=== PATIENT | female | born 2000 | race Caucasian/White ===

== ENCOUNTER 2023-09-27 21:53 | Emergency (ER) | payer OTHER, SELFPAY ==
[2023-09-27 21:57] VITALS: BP 150/90; PULSE 99; RESP 20; TEMP 36.6; O2SAT 100; BMI 21.0
--- NOTE | 2023-09-27 22:08 | ED_ITS ---
HPI - Wound/Laceration General Chief Complaint: Wound/Laceration Stated Complaint: laceration Time Seen by Provider: 09/27/23 22:02 Source: patient Mode of arrival: walk-in History of Present Illness HPI narrative: patient presents with a lac to her left wrist. States she was rough housing and somehow cut her wrist. Denies numbness or weakness of her left upper extremity Onset (ago): hour(s) Related Data Allergies Allergy/AdvReac Type Severity Reaction Status Date / Time No Known Drug Allergies Allergy Verified 09/27/23 22:00 Review of Systems ROS Status of ROS 10 or more systems reviewed and unremark able except as noted in history and below Exam Constitutional Vital Signs, click to edit/add: Last Vital Signs Temp 97.9 F 09/27/23 21:57 Pulse 99 H 09/27/23 21:57 Resp 20 09/27/23 21:57 BP 150/90 H 09/27/23 21:57 Pulse Ox 100 09/27/23 21:57 O2 Del Method Room Air 09/27/23 21:57 Common normals: no apparent distress, average body habitus, oriented x3, no limitations, healthy appearing, alert and well nourished Eye Common normals: EOMs intact bilaterally and conjunctivae normal Respiratory Common normals: normal respiratory effort, no retractions and no use of accessory muscles Cardio Common normals: regular rate, regular rhythm, S1 normal heart sound and S2 normal heart sound Extremity Other: superficial lac volar left wrist. 1.8cm Neuro Common normals: oriented x3, CN's II-XII intact bilaterally, moves all extremities, no focal motor deficits and no sensory deficits noted Sensorium/orientation: awake Psych Appearance: grossly normal Course Vital Signs Vital signs: Vital Signs Temperature 97.9 F 09/27/23 21:57 Pulse Rate 99 H 09/27/23 21:57 Respiratory Rate 20 09/27/23 21:57 Blood Pressure 150/90 H 09/27/23 21:57 Pulse Oximetry 100 09/27/23 21:57 Oxygen Delivery Method Room Air 09/27/23 21:57 Temperature 97.9 F 09/27/23 21:57 Pulse Rate 99 H 09/27/23 21:57 Respiratory Rate 20 09/27/23 21:57 Blood Pressure 150/90 H 09/27/23 21:57 Pulse Oximetry 100 09/27/23 21:57 Oxygen Delivery Method Room Air 09/27/23 21:57 MDM - Wound/Laceration MDM Narrative Medical decision making narrative: presents with minor lac left volar lac that was repaired without incident. History questionable. States she was rough housing with her infant son and some how cut her self . Discharge Plan Discharge Chief Complaint: Wound/Laceration Clinical Impression: Laceration Patient Disposition: Home, Self-Care Instructions: Laceration (ED) Additional Instructions: have wound rechecked in 2-3 days and stitches removed in 10 days Stand Alone Forms: Portal Instructions Referrals: Physician,Non-Staff, [Primary Care Provider] - 1 week Procedures ED Procedure Instructions Procedures Procedures: left wrist volar lac. superficial lac. No FB. No exposure of SQ tissue. 12mm lac. 1% lido as a local. Site cleaned with betadine, rinsed with saline and closed with # 2 4.0 nylon stitches
--- NOTE | 2023-09-27 22:08 | PC.NURSE ---
Pt states she was roughing housing with her son earlier this evening around 6pm, and cut her left wrist on something, but the pt is unsure what she cut her wrist on. States they went to [place] ED and sat in the waiting room for a long time so decided to come here. Bleeding is controlled. Hibiclens applied to gauze and placed on pts wrist. Pt light headed and dizzy, which is normal for her when she is injured.
--- NOTE | 2023-09-27 22:40 | PC.NURSE ---
Discussed discharge paperwork with pt. all questions answered. Pt verbalize understanding to have wound rechecked in 2-3 days and to have sutures removed in 10 days. Pt ambulated off unit in stable condition.
[2023-09-27] MEDS: BACITRACIN OINTMENT 28.4 GM TUBE 1 APPLIC TOPICAL (22:48)
[2023-09-27] MEDS: LIDOCAINE HCL 1% 100 MG/10 ML MDV INJ (22:48)
== END 2023-09-27 22:49 | disposition home or self-care (01) ==
PROVIDERS: Emergency Provider Internal Medicine
DX: S61.512A Laceration without foreign body of left wrist, initial encounter (principal); W45.8XXA Other foreign body or object entering through skin, initial encounter; Y93.83 Activity, rough housing and horseplay
CPT/HCPCS: 12001; 99282

== ENCOUNTER 2024-03-26 19:56 | Emergency (ER) | payer OTHER, SELFPAY ==
[2024-03-26 20:16] VITALS: BP 124/85; PULSE 69; TEMP 36.7; O2SAT 99; BMI 21.0
--- NOTE | 2024-03-26 20:24 | XR_ITS ---
The [address] [address] Patient Name: SHAE MARCUS MRN: [id number] date: 2000 Sex: F Assigned Patient Location: ER Current Patient Location: ED.MAIN Accession/Order Number: [id number] Exam Date: 03/26/2024 21:06 Report Date: 03/26/2024 23:07 At the request of: SANG FISCHER Procedure: XR ribs RT min 3V w CXR1V EXAM: XR ribs RT min 3V w CXR1V HISTORY: Atraumatic pain, right lower lateral ribs COMPARISON: None. TECHNIQUE: PA chest x-ray. AP oblique views right RIBS. FINDINGS: Chest x-ray demonstrates clear lungs, normal heart size and mediastinal contour. No pleural effusion or pneumothorax. No fracture. ] Films demonstrate smooth cortical margins normal mineralization without displaced fracture or focal bone lesion. XR/XR ribs RT min 3V w CXR1V IMPRESSION: Negative chest x-ray and right rib x-ray. No acute process in the chest, no rib fracture. Electronically authenticated by: CYRUS RAINEY Date: 03/26/2024 23:07
--- NOTE | 2024-03-26 20:26 | ED_ITS ---
HPI HPI - General Adult General Chief complaint: Back Pain/Injury Stated complaint: BACK PAIN AND SOB Time Seen by Provider: 03/26/24 20:09 Source: patient Mode of arrival: walk-in History of Present Illness HPI narrative: 23-year-old female presents for right lateral lower rib area pain. She has had it for a week and a half. If she sits still it does not hurt at all but if she moves in almost any direction it hurts. There was no trauma. She does not recall any twisting or other sort of injury. No dysuria or hematuria. No pain on the left side or in the abdomen. When the pain comes on it sharp and it makes her short of breath but she is laying still she is not short of breath. Related Data Previous Rx's ?Medication ?Instructions ?Recorded etodolac 400 mg tablet 400 mg PO Q8H PRN pain #20 tabs 03/26/24 Allergies Allergy/AdvReac Type Severity Reaction Status Date / Time No Known Drug Allergies Allergy Verified 09/27/23 22:00 Opioid HPI Opioid Management Most Recent Opioid Data: No Data to Display Review of Systems ROS Narrative A ten point review of systems is negative except as noted above. Exam Narrative Exam Narrative: Nurses note and vital signs reviewed and patient is not hypoxic. General: The patient appears well and in no apparent distress. When she goes to the sitting up position she seems to have pain and does that motion slowly. Skin: Warm, dry, no pallor noted. There is no rash noted. Head: Normocephalic, atraumatic Eye: Normal conjunctiva, no drainage Ears, Nose, Mouth, and Throat: oral mucosa is moist. Nares patent. Cardiovascular: Regular Rate and Rhythm Respiratory: Patient is in no distress, no accessory muscle use, lungs are clear to auscultation, no wheezing, rales or rhonchi Back: No bruise or rash on her back or the right flank area. GI: Soft and nontender including the right upper quadrant Musculoskeletal: The patient has no evidence of calf tenderness, no pitting edema, symmetrical pulses noted bilaterally Neurological: A&O, normal speech Psychiatric: Cooperative Constitutional Vital Signs, click to edit/add: Last Vital Signs Temp 98.0 F 03/26/24 20:16 Pulse 69 03/26/24 20:16 Resp 12 03/26/24 21:49 BP 124/85 03/26/24 20:16 Pulse Ox 99 03/26/24 20:16 O2 Del Method Room Air 03/26/24 20:16 Course Vital Signs Vital signs: Vital Signs Temperature 98.0 F 03/26/24 20:16 Pulse Rate 69 03/26/24 20:16 Respiratory Rate 16 03/26/24 20:16 Blood Pressure 124/85 03/26/24 20:16 Pulse Oximetry 99 03/26/24 20:16 Oxygen Delivery Method Room Air 03/26/24 20:16 Temperature 98.0 F 03/26/24 20:16 Pulse Rate 69 03/26/24 20:16 Respiratory Rate 12 03/26/24 21:49 Blood Pressure 124/85 03/26/24 20:16 Pulse Oximetry 99 03/26/24 20:16 Oxygen Delivery Method Room Air 03/26/24 20:16 Medical Decision Making MDM Narrative Medical decision making narrative: Her workup is negative. No evidence of PE or pneumothorax or UTI or kidney stone. Her pain on exam and by history is muscular in nature. She has a young child and we will avoid sedating medications. Treatment diagnosis and follow-up were discussed with the patient. Differential Diagnosis Differential Diagnosis: Muscle strain, rib fracture, pneumothorax, PE Lab Data Lab results reviewed: Yes I reviewed the patient's lab results Labs: Lab Results 03/26/24 03/26/24 Range/Units 20:50 21:10 D-Dimer 0.41 (<=0.59) mg/L FEU Urine Color Lt. yellow (YELLOW) Urine Clarity Clear (CLEAR) Urine pH 6.5 (5.0-9.0) Ur Specific [place] 1.020 (1.005-1.025) Urine Protein Negative (NEG/TRACE) mg/dL Urine Glucose (UA) Negative (NEGATIVE) mg/dL Urine Ketones Negative (NEGATIVE) mg/dL Urine Occult Blood Negative (NEGATIVE) Urine Nitrite Negative (NEGATIVE) Urine Bilirubin Negative (NEGATIVE) Urine Urobilinogen 1.0 (0.2-1.0) EU/dL Ur Leukocyte Esterase Negative (NEGATIVE) Urine RBC None seen (0-2) #/HPF Urine WBC 0-2 A (NONE SEEN) #/HPF Ur Squamous Epith Cells Few A (NONE/RARE) #/LPF Urine Crystals None seen (None Seen) #/HPF Amorphous Sediment Few Urine Bacteria None seen (NONE SEEN) #/HPF Urine Casts None seen (NONE SEEN) #/LPF Urine Mucus None seen (NONE SEEN) Ur Culture Indicated? No Imaging Data Rib x-rays: Radiologist's impression: ITS Impressions Ribs X-Ray 03/26/24 20:24 IMPRESSION: Negative chest x-ray and right rib x-ray. No acute process in the chest, no rib fracture. Electronically authenticated by: CYRUS RAINEY Date: 03/26/2024 23:07 Discharge Plan Discharge Stand Alone Forms: Portal Instructions Chief Complaint: Back Pain/Injury Clinical Impression: Chest wall pain Patient Disposition: Home, Self-Care Time of Disposition Decision: 23:19 Condition: Good Mode of Transportation: Private Vehicle Prescriptions / Home Meds: New etodolac 400 mg tablet 400 mg PO Q8H PRN (Reason: pain) Qty: 20 0RF Print Language: Mongolian Instructions: Chest Wall Pain (ED) Referrals: Physician,Non-Staff, MD [Primary Care Provider] - 1 week
[2024-03-26 21:16] LABS: Bilirubin Urine NEGATIVE (NEGATIVE); Blood Urine NEGATIVE (NEGATIVE); Clarity Urine CLEAR (CLEAR); Color Urine LT. YELLOW (YELLOW); Glucose Urine UA NEGATIVE (NEGATIVE); Ketones Urine NEGATIVE (NEGATIVE); Leukocyte Esterase Urine NEGATIVE (NEGATIVE); Nitrite Urine NEGATIVE (NEGATIVE); Protein Urine NEGATIVE (NEG/TRACE); pH Urine 6.5 (5.0-9.0)
[2024-03-26 21:23] LABS: Amorphous Sediment Urine FEW; Bacteria Urine NONE SEEN #/HPF (NONE SEEN); Cast Seen? NONE SEEN #/LPF (NONE SEEN); Crystals Seen? None Seen #/HPF (None Seen); Mucus Urine NONE SEEN (NONE SEEN); RBC Urine NONE SEEN #/HPF (0-2); Squamous Epithelial Cell Urine FEW #/LPF (NONE/RARE); WBC Urine 0-2 #/HPF (NONE SEEN)
[2024-03-26 21:24] LABS: Urine Culture Indicated NO
[2024-03-26 21:31] LABS: D Dimer 0.41 mg/L FEU (<=0.59)
--- OUTSIDE RECORDS SUMMARY | 2024-03-26 22:12 | XMS_ITS | CCD ---
Author Organization [facility] Inform ion Partnership [facility] Care Team Providers Care Lead Engineer Name Role Phone KIRILL ADAM Admitting Unavailable KIRILL ADAM Attending Unavailable KIRILL ADAM Consulting Unavailable CYRUS SUAZO Attending Unavailable No Pcp, No Pcp Primary Care Provider Unavailabl e NO PCP, NO PCP Primary Care Unavailable NO PCP, NO PCP Primary Care Unavailable Medications Current Medications Medication Drug Class(es) Dates Sig (Normalized) Sig (Original) Desogestrel / Ethinyl Estradiol (2 sources) Progestin, Estrogen Start: 05-28-2023 take 1 tablet by mouth once in the morning desog-e.estradioL/e. estradioL (KARIVA) 0.15-0.02 mgx21 /0.01 mg x 5 per tablet Indications: Surveillance of contraceptive pill Take 1 tablet by mouth in the morning. 28 tablet 12 05/28/2023 Active FLUoxetine 20 mg oral capsule (3 sources) Serotonin Reuptake Inhibitor Start: 09-28-2023 End: 10-29-2023 take 1 capsule by mouth in the morning FLUoxetine (PROzac) 20 mg capsule Indications: depression Take 1 capsule (20 mg total) by mouth in the morning. 90 capsule 2 10/29/2023 Active Problems Active Problems Problem Classification Problem Date Documented Da te Episodic/Chronic Immunizations and screening for infectious disease (4 sources) Contact with and (suspected) exposure to other viral communicable diseases; Translations: [CONTCT EXPS OTH VIRL COMMUNICABL DZ] Onset: 06-07-2020 Episodic Miscellaneous mental health disorders (1 source) depression; Translations: [ depression] 10-29-2023 Episodic Mood disorders (3 sources) Severe recurrent major depression without psychotic features; Translations: [Major depressive disorder, recurrent severe without psychotic features] Onset: 09-28-2023 09-28-2023 Chronic Other injuries and conditions due to external causes (1 source) Laceration - injury Onset: 09-27-2023 Episodic Syncope (1 source) Syncope and collapse; Translations: [Syncope and collapse] Onset: 02-24-2023 Episodic Unclassified (1 source) OPEN WOUND LEFT WRIST Onset: 09-27-2023 Past or Other Problems Problem Classification Problem Date Documented Da te Episodic/Chronic Mood disorders (2 sources) Mood disorders Onset: 05-28-2023 05-28-2023 Results Test Name Value Interpretation Reference Range Facil ity CBC with Diffon 02-24-2023 Abs. Basophil 0.03 k/uL Normal 0.00-0.20 [facility] Comment on above: Performed By: #### H CG, CDP #### [place] [address] [employer] Policy And Strategy Planner: Eddie Mari MD Abs.Imm.Granulocyte <0.03 Normal 0.00-0.30 [facility] Comment on above: Performed By: #### H CG, CDP #### [place] [address] [employer] Policy And Strategy Planner: Eddie Mari MD Abs.Neutrophil (Seg) 2.63 k/uL Normal 1.80-8.00 [facility] Comment on above: Performed By: #### H CG, CDP #### [address] [address] [employer] Policy And Strategy Planner: Eddie Mari MD Basophils/100 WBC (Bld) 1 % Normal 0-2 [facility] Comment on above: Performed By: #### H CG, CDP #### [facility] [address] [place] [address] [employer] Policy And Strategy Planner: Eddie Mari MD Eosinophils (Bld) [#/Vol] 0.39 10*3/uL Normal 0.00-0.44 [facility] Comment on above: Performed By: #### H CG, CDP #### [address] [address] [employer] Policy And Strategy Planner: Eddie Mari MD Eosinophils/100 WBC (Bld) 7 % High 1-4 [facility] Comment on above: Performed By: #### H CG, CDP #### [address] [address] [employer] Policy And Strategy Planner: Eddie Mari MD Erythrocyte distribution width (RBC) [Ratio] 13.0 % Normal 11.8-14.4 [facility] Comment on above: Performed By: #### H CG, CDP #### [facility] [address] [place] [address] [employer] Policy And Strategy Planner: Eddie Mari MD Hematocrit (Bld) [Volume fraction] 39.4 % Normal 36.3-47.1 [facility] Comment on above: Performed By: #### H CG, CDP #### [address] [address] [employer] Policy And Strategy Planner: Eddie Mari MD Hemoglobin (Bld) [Mass/Vol] 12.8 g/dL Normal 11.9-15.1 [facility] Comment on above: Performed By: #### H CG, CDP #### [address] [address] [employer] Policy And Strategy Planner: Eddie Mari MD Immature granulocytes/100 WBC (Bld) 0 % Normal 0 [facility] Comment on above: Performed By: #### H CG, CDP #### [facility] [address] [place] [address] [employer] Policy [employer] Strategy Planner: Eddie Mari MD Lymphocytes (Bld) [#/Vol] 2.25 10*3/uL Normal 1.20-5.20 [facility] Comment on above: Performed By: #### H CG, CDP #### [facility] [address] [place] [address] [employer] Policy And Strategy Planner: Eddie Mari MD Lymphocytes/100 WBC (Bld) 39 % Normal 25-45 [facility] Comment on above: Performed By: #### H CG, CDP #### [address] [address] [employer] Policy And Strategy Planner: Eddie Mari MD MCH (RBC) [Entitic mass] 27.4 pg Normal 25.2-33.5 [facility] Comment on above: Performed By: #### H CG, CDP #### [address] [address] [employer] Policy And Strategy Planner: Eddie Mari MD MCHC (RBC) [Mass/Vol] 32.5 g/dL Normal 28.4-34.8 [facility] Comment on above: Performed By: #### H CG, CDP #### [address] [address] [employer] Policy And Strategy Planner: Eddie Mari MD MCV (RBC) [Entitic vol] 84.2 fL Normal 82.6-102.9 [facility] Comment on above: Performed By: #### H CG, CDP #### [address] [address] [employer] Policy And Strategy Planner: Eddie Mari MD Monocytes (Bld) [#/Vol] 0.50 10*3/uL Normal 0.10-1.40 [facility] Comment on above: Performed By: #### H CG, CDP #### [address] [address] [employer] Policy And Strategy Planner: Eddie Mari MD Monocytes/100 WBC (Bld) 9 % High 2-8 [facility] Comment on above: Performed By: #### H CG, CDP #### [address] [address] [employer] Policy And Strategy Planner: Eddie Mari MD Neutrophil (Seg) 44 % Normal 34-64 [facility] Comment on above: Performed By: #### H CG, CDP #### [address] [address] [employer] Policy And Strategy Planner: Eddie Mari MD NRBC Automated 0.0 per 100 WBC Normal 0.0 [facility] Comment on above: Performed By: #### H CG, CDP #### [facility] [address] [place] [address] [employer] Policy And Strategy Planner: Eddie Mari MD Platelet mean volume (Bld) [Entitic vol] 9.4 fL Normal 8.1-13.5 [facility] Comment on above: Performed By: #### H CG, CDP #### [facility] [address] [place] [address] [employer] Policy And Strategy Planner: Eddie Mari MD Platelets (Bld) [#/Vol] 258 10*3/uL Normal 138-453 [facility] Comment on above: Performed By: #### H CG, CDP #### [address] [address] [employer] Policy And Strategy Planner: Eddie Mari MD RBC (Bld) [#/Vol] 4.68 10*6/uL Normal 3.95-5.11 [facility] Comment on above: Performed By: #### H CG, CDP #### [address] [address] [employer] Policy And Strategy Planner: Eddie Mari MD WBC (Bld) [#/Vol] 5.8 10*3/uL Normal 4.5-13.5 [facility] Comment on above: Performed By: #### H CG, CDP #### [address] [address] [employer] Policy And Strategy Planner: Eddie Mari MD HCG Screen, Bloodon 02-25-20 23 HCG Screen, Blood Negative Normal NEG [facility] Comment on above: Result Comment: Spec imens with hCG levels near the threshold of the test (25 mIU/mL) may give a negative or indeterminate result. In such cases, another test should be performed with a new specimen in 48-72 hours. If early is suspected clinically in this setting, correlation with quantitative serum b-hCG level is suggested. [employer] has confirmed the use of plasma for this test. This has not been cleared or approved by the U.S. Food and Drug Administration. The FDA has determined that such clearance is not necessary. Performed By: #### H CG, CDP #### [employer] [facility] [place] [address] Cyber Policy And Strategy Planner: Eddie Mari MD COVID-19 PCRon 06-10-2020 SARS-CoV-2, [facility] Not Detected Normal Not Detected [facility] Comment on above: Result Comment: This nucleic acid amplification test was developed and its performance characteristics determined by [employer]. Nucleic acid amplification tests include PCR and TMA. This test has not been FDA cleared or approved. This test has been authorized by FDA under an Emergency Use Authorization (EUA). This test is only authorized for the duration of time the declaration that circumstances exist justifying the authorization of the emergency use of in vitro diagnostic tests for detection of SARS-CoV-2 virus and/or diagnosis of COVID-19 infection under section 564(b)(1) of the Act, 21 U.S.C. 360bbb-3(b) (1), unless the authorization is terminated or revoked sooner. When diagnostic testing is negative, the possibility of a false negative result should be considered in the context of a patient's recent exposures and the presence of clinical signs and symptoms consistent with COVID-19. An individual without symptoms of COVID-19 and who is not shedding SARS-CoV-2 virus would expect to have a negative (not detected) result in this assay. Performed By: #### C VDPCR #### [facility] [address] [place] [address] Jose Topete Vital Signs Date Time Vital Sign Value Performing Clinician Brandon stout 09-28-2023 11:33-0500 Body height 154.9 cm [facility] Mobile Security Architect [facility] 09-28-2023 11:33-0500 Body mass index (BMI) [Ratio] 19.65 kg/m2 [facility] Mobile Security Architect [facility] 09-28-2023 11:33-0500 Body [facility] 47.17 [facility] 09-28-2023 11:33-0500 Diastolic blood pressure 70 mm[Hg] [facility] Mobile Security Architect [facility] 09-28-2023 11:33-0500 Systolic blood pressure 102 mm[Hg] [facility] Mobile Security Architect [facility] Encounters Encounter Date Encounter Type Care Provider Facility Start: 10-29-2023 End: 10-29-2023 Office outpatient visit 15 minutes Nancy Degroot APRN-TRAINING INSTRUCTOR Work Phone: [facility] Comment on above: depressio n (Primary Dx) Start: 09-28-2023 End: 09-28-2023 ambulatory NO PCP NO PCP [facility] Start: 09-28-2023 End: 09-28-2023 Office outpatient visit 15 minutes [facility] Ob Mobile Security Architect [facility] [place] Comment on above: Severe episode of re current major depressive disorder, without psychotic features (CMS-HCC) (Primary Dx) Start: 09-27-2023 End: 09-27-2023 Emergency department patient visit NO PCP NO PCP [facility] Start: 02-24-2023 End: 02-24-2023 Emergency department patient visit CYRUS SUAZO [facility] Start: 06-07-2020 End: 06-07-2020 Patient encounter procedure KIRILL ADAM Facility:H1 Procedures Date Procedure Procedure Detail Performing Clinician Start: 05-28-2023 Adult depression scr eening assessment [facility] Mobile Security Architect Start: 05-28-2023 Microscopic observat ion [Identifier] in Cervix by Cyto stain [facility] Mobile Security Architect Plan of Treatment Date Care Activity Detail Author Start: 09-22-2032 DTaP,Tdap and Td Vaccines (8 - Td or Tdap) DTaP,Tdap and Td Vaccines (8 - Td or Tdap) [facility] Start: 05-28-2026 Screening for malign ant neoplasm of cervix Pap Smear [facility] Start: 10-29-2024 Tobacco Screening Tobacco Screening [facility] Start: 09-28-2024 Adult BMI Screening Adult BMI Screen ing [facility] Start: 09-28-2024 Tobacco Screening Tobacco Screening [facility] Start: 09-25-2024 Screening for Chlamy cl trachomatis Chlamydia Screening [facility] Start: 05-28-2024 Depression Screening Depression Scre ening [facility] Start: 10-29-2023 End: 10-29-2023 Patient encounter procedure 10/29/2023 1:00 PM EST Office Visit [facility] [address] [place] [id number] Nancy Degroot, CORRECTIONAL CASE MANAGER-TRAINING INSTRUCTOR [address] [place], [place] [id number] [facility] Start: 05-07-2023 Influenza vaccination Influenza Vacc ine [facility] Immunizations Immunization Date Immunization Notes Care Provider Fa cility 09-22-2022 tetanus toxoid, redu yasmin diphtheria toxoid, and acellular pertussis vaccine, adsorbed [facility] Mobile Security Architect [facility] Payers Date Payer Category Payer Medicaid [facility] O [id number] 2022-Present [phone] [address] [place] [address] [id number] 2002 Unknown [id number] 2002 Unknown [id number] 2002 Unknown [id number] 2002 Unknown [id number] 1959 Unknown [id number] Social History Date Type Detail Facility Start: 11-21-2022 Tobacco smoking stat [facility] Ex-smoker [facility] History of tobacco use Current smoker [facility] History of tobacco use Cigar Smoker [facility] Start: 11-21-2022 Tobacco use and exposure Smokeless tobacco non-user [facility] Start: 09-28-2023 End: 10-29-2023 Alcohol intake Ex-drinker (finding) [facility] Start: 10-17-2020 End: 09-28-2023 History of Social function [facility] Start: 10-17-2020 End: 09-28-2023 Tobacco use panel [facility] How hard is it for y ou to pay for the very basics like food, housing, medical care, and heating Not hard at all [facility] The thought of kylah almanza myself has occurred to me Never [facility] Start: 11-21-2022 Tobacco Comment For 3 months p rior to [facility] Start: 2002 Sex Assigned At Female P [facility] Start: 05-15-2022 Gender identity Identifies as female gender (finding) [facility] Start: 05-15-2022 Sexual orientation Heterosexual (fin jalil) [facility] History of Present illness Narrative 10-29-2023 Nancy Degroot APRN-TRAINING INSTRUCTOR - 10/29/2023 1:00 PM EST Note Date & Type Note Facility 10-29-2023 History of Present illness Narrative This call is considered a video visit, which is to help assess your current healthcare needs and to determine the appropriate care you may require. This visit may be a billable service through your insurance company. Do you consent to moving forward with this video visit? Yes. Date of confirmed. Both patient and provider currently located in the [facility]. Maria Guadalupe Portillo is a 23 y.o.female. Patient's last menstrual period was 10/04/2023 (approximate).. She presents via video visit for medication follow up. Patient had an in December 2022. She came in last month with c/o depression. She was feeling sad, angry, irritable and anxious. She was started on Prozac and encouraged to find a therapist. Patient reports today that she is feeling much better. She is taking Prozac 20mg daily and states she feels like it is exactly what she needed. Patient has not sought therapy yet, but states she is considering it. She desires to continue with current dose of Prozac at this time. Current contraception:oral contraceptives (estrogen/progesterone) OB History 1 Para 1 Term 1 0 AB 0 Living 1 SAB 0 IAB 0 Ectopic 0 Multiple 0 Live Births 1 MEDICAL HX Past Medical History: Diagnosis Date ADHD SURGICAL HX Past Surgical History: Procedure Laterality Date N/A 12/05/2022 Performed by Lanette Ramey MD at [facility] FAMILY HX Family History Problem Relation Age of Onset Diabetes Mother No Known Problems Father Blood Clots Neg Hx MEDS Current Outpatient Medications Medication Sig Dispense Refill desog-e.estradioL/e.estradioL (KARIVA) 0.15-0.02 mgx21 /0.01 mg x 5 per tablet Take 1 tablet by mouth in the morning. 28 tablet 12 FLUoxetine (PROzac) 20 mg capsule Take 1 capsule (20 mg total) by mouth in the morning. 90 capsule 2 No current facility-administered medications for this visit. ALLERGIES No Known Allergies Review of Systems Review of Systems Constitutional: Negative. Respiratory: Negative. Negative for chest tightness and shortness of breath. Cardiovascular: Negative. Negative for chest pain and palpitations. Gastrointestinal: Positive for diarrhea. Negative for constipation, nausea and vomiting. Genitourinary: Negative. Neurological: Negative. Psychiatric/Behavioral: Negative. Objective LMP 10/04/2023 (Approximate) Physical Exam Constitutional: Appearance: Normal appearance. Pulmonary: Effort: Pulmonary effort is normal. Neurological: Mental Status: She is alert and oriented to person, place, and time. Psychiatric: Mood and Affect: Mood normal. Speech: Speech normal. Behavior: Behavior normal. Thought Content: Thought content normal. Judgment: Judgment normal. Assessment/Plan: Diagnoses and all orders for this visit: depression - FLUoxetine (PROzac) 20 mg capsule; Take 1 capsule (20 mg total) by mouth in the morning. All questions answered. Patient to consider therapy. Educational material provided through [employer]. RTO for annual (due May 2024) or sooner as needed. Patient to present to ED with any suicidal / homicidal thoughts. SHIMA Arroyo APRN-CNP 10/29/23 1316 documented in this encounter [facility] History of Present illness Narrative 09-28-2023 Nancy Degroot, CORRECTIONAL CASE MANAGER-TRAINING INSTRUCTOR - 09/28/2023 11:30 AM EST Note Date & Type Note Facility 09-28-2023 History of Present illness Narrative Maria Guadalupe Portillo is a 23 y.o.female. Patient's last menstrual period was 09/07/2023 (approximate).. She presents with c/o depression. Pt experienced PP depression after delivery of child in December 2022. She was given zoloft and only took one pill because it didn't help. We offered different meds and patient declined. She was given a list of behavioral health providers at that time, but states she has not called. Pt c/o sadness, angry,, irritability, anxiety. Pt is bottle / formula feeding. Pt has support from but he works 12 hr shifts. He is present with her today. Patient states she feels she has pushed everyone away and she has no one in her corner. Patient denies suicidal / homicidal ideations. Current contraception:oral contraceptives (estrogen/progesterone) OB History 1 Para 1 Term 1 0 AB 0 Living 1 SAB 0 IAB 0 Ectopic 0 Multiple 0 Live Births 1 MEDICAL HX Past Medical History: Diagnosis Date ADHD SURGICAL HX Past Surgical History: Procedure Laterality Date N/A 12/05/2022 Performed by Lanette Ramey MD at [facility]X Family History Problem Relation Age of Onset Diabetes Mother No Known Problems Father Blood Clots Neg Hx MEDS Current Outpatient Medications Medication Sig Dispense Refill desog-e.estradioL/e.estradioL (KARIVA) 0.15-0.02 mgx21 /0.01 mg x 5 per tablet Take 1 tablet by mouth in the morning. 28 tablet 12 FLUoxetine (PROzac) 20 mg capsule Take 1 capsule (20 mg total) by mouth in the morning. 30 capsule 1 No current facility-administered medications for this visit. ALLERGIES No Known Allergies Review of Systems Constitutional: Negative. Respiratory: Negative. Negative for chest tightness and shortness of breath. Cardiovascular: Negative. Negative for chest pain and palpitations. Genitourinary: Negative. Neurological: Negative. Psychiatric/Behavioral: Negative for self-injury and suicidal ideas. Objective BP 102/70 Ht 154.9 cm (5' 1 ) Wt 47.2 kg (104 lb) LMP 09/07/2023 (Approximate) BMI 19.65 kg/m Physical Exam Vitals and nursing note reviewed. Constitutional: Appearance: Normal appearance. Cardiovascular: Rate and Rhythm: Normal rate and regular rhythm. Pulses: Normal pulses. Heart sounds: Normal heart sounds. Pulmonary: Effort: Pulmonary effort is normal. Breath sounds: Normal breath sounds. Musculoskeletal: General: Normal range of motion. Skin: General: Skin is warm and dry. Neurological: Mental Status: She is alert and oriented to person, place, and time. Psychiatric: Attention and Perception: Attention normal. Mood and Affect: Mood is depressed. Affect is tearful. Speech: Speech normal. Behavior: Behavior normal. Behavior is cooperative. Thought Content: Thought content does not include homicidal or suicidal ideation. Thought content does not include homicidal or suicidal plan. Assessment/Plan: Maria Guadalupe was seen today for depression. Diagnoses and all orders for this visit: Severe episode of recurrent major depressive disorder, without psychotic features ([facility]) - FLUoxetine (PROzac) 20 mg capsule; Take 1 capsule (20 mg total) by mouth in the morning. Discussed the use of meds in addition to therapy with better results. Patient encouraged to make an appt with a therapist. S/O to check on availability of EAP. List given of area therapists. Patient agrees to call 911 immediately with any homicidal / suicidal thoughts. Educational material provided. Discussed some tips to help patient increase social kashia / support. All questions answered. RTO 4 weeks for medication follow up and possibly dose increase. Return sooner if needed. ANTONELLA Winter APRN-CNP Lisa M Franco, APRN-CNP 09/28/23 1403 documented in this encounter [facility] Evaluation note Note Date & Type Note Facility Evaluation note Diagnosis Severe episode of recurrent major depressive disorder, without psychotic features ([facility])- Primary documented in this encounter [facility] Evaluation note Note Date & Type Note Facility Evaluation note Diagnosis depression- Primary Mental disorders of mother, complicating , childbirth, or the puerperium, unspecified as to episode of care documented in this encounter [facility] Instructions Attachments Note Date & Type Note Facility Instructions The following attachments cannot be sent through Care Everywhere.Depression (Citizen Of [place])Adjustment Disorder (Citizen Of [place])documented in this encounter [facility] Instructions Attachments Note Date & Type Note Facility Instructions The following attachments cannot be sent through Care Everywhere.Depression (Citizen Of [place])documented in this encounter [facility] Summary Purpose Family History No Family History Records FoundNo Family History Records FoundNo Family History Records FoundNo Family History Records Found Advance Directives Latest Code Status on File Code Status Date Activated Date Inactivated Comments Full Code 12/05/2022 12:49 AM 12/07/2022 6:29 PM Code Status History Code Status Date Activated Date Inactivated Comments Full Code 11/21/2022 6:27 PM 11/21/2022 8:37 PM Full Code 11/15/2022 7:35 PM 11/16/2022 12:07 AM Full Code 09/12/2022 5:42 PM 09/12/2022 8:08 PM Additional Source Comments INFORMATION SOURCE (unrecogn ized section and content) DATE CREATED AUTHOR 06/14/2020 [facility] DATE CREATED AUTHOR AUTHOR'S ORGANIZ ATION 02/25/2023 [facility] DATE CREATED AUTHOR AUTHOR'S ORGANIZ ATION 09/30/2023 [facility] DATE CREATED AUTHOR AUTHOR'S ORGANIZ ATION 10/01/2023 [facility] Reason for Visit (unrecogniz ed section and content) Reason Comments Depression Care Teams (unrecognized sec tion and content) Lead Engineer Relationship Specialty Start Date End Date No Pcp, [place] [address] PCP - General Family Medicine 07/15/22 FOR RECORDS PERTAINING TO PATIENTS WHO ARE OR HAVE BEEN ENROLLED IN A CHEMICAL DEPENDENCY/SUBSTANCEABUSE PROGRAM, SOME INFORMATION MAY BE OMITTED. This clinical summary was aggregated from multiple sources. Caution should be exercised in using it in the provision of clinical care. This summary normalizes information from multiple sources, and as a consequence, information in this document may materially change the coding, format and clinical context of patient data. In addition, data may be omitted in some cases. CLINICAL DECISIONS SHOULD BE BASED ON THE PRIMARY CLINICAL RECORDS. [facility] [employer]. provides no warranty or guarantee of the accuracy or completeness of information in this document.
== END 2024-03-26 23:27 | disposition home or self-care (01) ==
PROVIDERS: Emergency Provider Emergency Medicine
DX: R07.89 Other chest pain (principal)
CPT/HCPCS: 36415; 71101; 81001; 85378; 99283

== ENCOUNTER 2024-11-19 06:21 | Emergency (ER) | payer OTHER, SELFPAY ==
--- OUTSIDE RECORDS SUMMARY | 2024-11-19 06:26 | XMS_ITS | CCD ---
Author Organization [facility] Inform ion Partnership [facility] Care Team Providers Care Skip Operator Name Role Phone KIRILL ADAM Admitting Unavailable KIRILL ADAM Attending Unavailable KIRILL ADAM Consulting Unavailable CYRUS SUAZO Attending Unavailable NO PCP, NO PCP Primary Care Unavailable NO PCP, NO PCP Primary Care Unavailable No Pcp, No Pcp Primary Care Provider Unavailabl e Medications Current Medications Medication Drug Class(es) Dates [...] OTH VIRL COMMUNICABL DZ] Onset: 06-07-2020 Episodic Mood disorders (3 sources) Major depressive disorder, recurrent severe without psychotic features; Translations: [Depression] Onset: 09-28-2023 09-28-2023 Chronic Other injuries and conditions due to external causes (1 source) Laceration - injury Onset: 09-27-2023 Episodic Syncope (1 source) Syncope and collapse; Translations: [Syncope and collapse] Onset: 02-24-2023 Episodic Unclassified (1 source) OPEN WOUND LEFT WRIST Onset: 09-27-2023 Past or Other Problems Problem Classification Problem Date Documented Da te Episodic/Chronic Miscellaneous mental health disorders (1 source) depression; Translations: [ depression] 10-29-2023 Episodic Mood disorders (2 sources) Mood disorders Onset: 05-28-2023 05-28-2023 Results Test Name Value Interpretation Reference Range Facil ity CBC with Diffon 02-24-2023 Abs. Basophil 0.03 k/uL Normal 0.00-0.[address] [facility] Comment on above: Performed By: #### H CG, CDP #### [place] [address] Admin Asst: Eddie Mari MD Abs.Imm.Granulocyte <0.03 Normal 0.00-0.[address] [facility] Comment on above: Performed By: #### H CG, CDP #### [place] [address] Admin Asst: Eddie Mari MD Abs.Neutrophil (Seg) 2.63 k/uL Normal 1.80-8.[address] [facility] Comment on above: Performed By: #### H CG, CDP #### [facility] [address] [place] [address] Admin Asst: Eddie Mari MD Basophils/100 WBC (Bld) 1 % Normal 0-[address] [facility] Comment on above: Performed By: #### H CG, CDP #### [facility] [address] [place] [address] Admin Asst: Eddie Mari MD Eosinophils (Bld) [#/Vol] 0.39 10*3/uL Normal 0.00-0.[address] [facility] Comment on above: Performed By: #### H CG, CDP #### [address] [address] Admin Asst: Eddie Mari MD Eosinophils/100 WBC (Bld) 7 % High 1-[address] [facility] Comment on above: Performed By: #### H CG, CDP #### [facility] [address] [place] [address] Admin Asst: Eddie Mari MD Erythrocyte distribution width (RBC) [Ratio] 13.0 % Normal 11.8-14.[address] [facility] Comment on above: Performed By: #### H CG, CDP #### [facility] [address] [place] [address] Admin Asst: Eddie Mari MD Hematocrit (Bld) [Volume fraction] 39.4 % Normal 36.3-47.[address] [facility] Comment on above: Performed By: #### H CG, CDP #### [address] [address] Admin Asst: Eddie Mari MD Hemoglobin (Bld) [Mass/Vol] 12.8 g/dL Normal 11.9-15.[address] [facility] Comment on above: Performed By: #### H CG, CDP #### [address] [address] Admin Asst: Eddie Mari MD Immature granulocytes/100 WBC (Bld) 0 % Normal [address] [facility] Comment on above: Performed By: #### H CG, CDP #### [address] [address] Admin Asst: Eddie Mari MD Lymphocytes (Bld) [#/Vol] 2.25 10*3/uL Normal 1.20-5.[address] [facility] Comment on above: Performed By: #### H CG, CDP #### [facility] [address] [place] [address] Admin Asst: Eddie Mari MD Lymphocytes/100 WBC (Bld) 39 % Normal 25-[address] [facility] Comment on above: Performed By: #### H CG, CDP #### [address] [address] Admin Asst: Eddie Mari MD MCH (RBC) [Entitic mass] 27.4 pg Normal 25.2-33.[address] [facility] Comment on above: Performed By: #### H CG, CDP #### [address] [address] Admin Asst: Eddie Mari MD MCHC (RBC) [Mass/Vol] 32.5 g/dL Normal 28.4-34.[address] [facility] Comment on above: Performed By: #### H CG, CDP #### [address] [address] Admin Asst: Eddie Mari MD MCV (RBC) [Entitic vol] 84.2 fL Normal 82.6-102.[address] [facility] Comment on above: Performed By: #### H CG, CDP #### [address] [address] Admin Asst: Eddie Mari MD Monocytes (Bld) [#/Vol] 0.50 10*3/uL Normal 0.10-1.[address] [facility] Comment on above: Performed By: #### H CG, CDP #### [address] [address] Admin Asst: Eddie Mari MD Monocytes/100 WBC (Bld) 9 % High 2-[address] [facility] Comment on above: Performed By: #### H CG, CDP #### [address] [address] Admin Asst: Eddie Mari MD Neutrophil (Seg) 44 % Normal 34-64 [facility] Comment on above: Performed By: #### H CG, CDP #### [address] [address] Admin Asst: Eddie Mari MD NRBC Automated 0.0 per [address] WBC Normal 0[address] [facility] Comment on above: Performed By: #### H CG, CDP #### [facility] [address] [place] [address] Admin Asst: Eddie Mari MD Platelet mean volume (Bld) [Entitic vol] 9.4 fL Normal 8.1-13.[address] [facility] Comment on above: Performed By: #### H CG, CDP #### [facility] [address] [place] [address] Admin Asst: Eddie Mari MD Platelets (Bld) [#/Vol] 258 10*3/uL Normal 138-[address] [facility] Comment on above: Performed By: #### H CG, CDP #### [address] [address] Admin Asst: Eddie Mari MD RBC (Bld) [#/Vol] 4.68 10*6/uL Normal 3.95-5.[address] [facility] Comment on above: Performed By: #### H CG, CDP #### [facility] [address] [place] [address] Admin Asst: Eddie Mari MD WBC (Bld) [#/Vol] 5.8 10*3/uL Normal 4.5-13.[address] [facility] Comment on above: Performed By: #### H CG, CDP #### [facility] [address] [place] [address] Admin Asst: Eddie Mari MD HCG Screen, Bloodon 02-25-20 23 HCG Screen, Blood Negative Normal NEG [facility] Comment on above: Result Comment: Spec imens with hCG levels near the threshold of the test (25 mIU/mL) may give a negative or indeterminate result. In such cases, another test should be performed with a new specimen in 48-72 hours. If early is suspected clinically in this setting, correlation with quantitative serum b-hCG level is suggested. [facility] has confirmed the use of plasma for this test. This has not been cleared or approved by the U.S. Food and Drug Administration. The FDA has determined that such clearance is not necessary. Performed By: #### H CG, CDP #### [facility] [place] [address] Admin Asst: Eddie Mari MD COVID-19 PCRon 06-10-2020 SARS-CoV-2, KAHLIL Not Detected Normal Not Detected [facility] Comment on above: Result Comment: This nucleic acid amplification test was developed and its performance characteristics determined by [employer]. Nucleic acid amplification tests include PCR and [...] assay. Performed By: #### C VDPCR #### [facility] [address] [place] [address] Jose Topete Vital Signs Date Time Vital Sign Value Performing Clinician Brandon stout 09-28-2023 11:33-0500 Body height 154.9 cm [facility] 09-28-2023 11:33-0500 Body mass index (BMI) [Ratio] 19.65 kg/m2 [facility] 09-28-2023 [id number] Body weight 47.17 kg [facility] 09-28-2023 11:33-0500 Diastolic blood pressure 70 mm[Hg] [facility] [employer] [facility] 09-28-2023 11:33-0500 Systolic blood pressure 102 mm[Hg] [facility] Encounters Encounter Date Encounter Type Care Provider Facility Start: 10-29-2023 End: 10-29-2023 Office outpatient visit 15 minutes Nancy Degroot APRN-TERMITE EXTERMINATOR HELPER Work Phone: [facility] Comment on above: depressio n (Primary Dx) Start: 09-28-2023 End: 09-28-2023 ambulatory NO PCP NO PCP [facility] Start: 09-28-2023 End: 09-28-2023 Office outpatient visit 15 minutes [facility] [employer] [place] Comment on above: Severe episode of re current major depressive disorder, without psychotic features ([facility]) (Primary Dx) Start: 09-27-2023 End: 09-27-2023 Emergency department patient visit NO PCP NO PCP [facility] Start: 02-24-2023 End: 02-24-2023 Emergency department patient visit CYRUS SUAZO [facility] Start: 06-07-2020 End: 06-07-2020 Patient encounter procedure KIRILL ADAM Facility:H1 Procedures Date Procedure Procedure Detail Performing Clinician Start: 05-28-2023 Adult depression scr eening assessment [facility] Start: 05-28-2023 Microscopic observat ion [Identifier] in Cervix by Cyto stain [facility] [employer] Plan of Treatment Date Care Activity Detail Author Start: 09-22-2032 DTaP,Tdap and Td Vaccines (8 - Td or Tdap) DTaP,Tdap and Td Vaccines (8 - Td or Tdap) [facility] Start: 05-28-2026 Screening for malign ant neoplasm of cervix Pap Smear [facility] Start: 10-29-2024 Tobacco Screening Tobacco Screening [facility] Start: 09-28-2024 Adult BMI Screening Adult BMI Screen ing [facility] Start: 09-28-2024 Tobacco Screening Tobacco Screening [facility] Start: 05-31-2024 Screening for Chlamy cl trachomatis Chlamydia Screening [facility] Start: 05-28-2024 Depression Screening Depression Scre ening [facility] Start: 10-29-2023 End: 10-29-2023 Patient encounter procedure 10/29/2023 1:00 PM EST Office Visit [facility] [address] [id number] Nancy Degroot, SIDE SEAM ENVELOPE MACHINE OPERATOR-TERMITE EXTERMINATOR HELPER [address] [place], [place] [id number] [facility] Start: 05-07-2023 Influenza vaccination Influenza Vacc ine [facility] Immunizations Immunization Date Immunization Notes Care Provider Fa cility 09-22-2022 tetanus toxoid, redu yasmin diphtheria toxoid, and acellular pertussis vaccine, adsorbed [facility] [employer] Payers Date Payer Category Payer Medicaid [employer] [facility] [facility] [id number] 2022-Present [phone] [address] [place] [address] [id number] 2002 Unknown [id number] 2002 Unknown [id number] 2002 Unknown [id number] 2002 Unknown [id number] 1959 Unknown [id number] Social History Date Type Detail Facility Start: 11-21-2022 [facility] History of tobacco use Current smoker [facility] History of tobacco use Cigar Smoker [facility] Start: 11-21-2022 Tobacco use and exposure Smokeless tobacco non-user [facility] Start: 09-28-2023 End: 10-29-2023 Alcohol intake Ex-drinker (finding) [facility] Start: 10-17-2020 End: 09-28-2023 History of Social function [facility] Start: 10-17-2020 End: 09-28-2023 Tobacco use panel [facility] How hard is it for y ou to pay for the very basics like food, housing, medical care, and heating Not hard at all [facility] The thought of kylah almanza myself has occurred to me Never [facility] Start: 11-21-2022 Tobacco Comment For 3 months p rior to [facility] Start: 2002 Sex Assigned At Female P [facility] Start: 05-15-2022 Gender identity Identifies as female gender (finding) [facility] Start: 05-15-2022 Sexual orientation Heterosexual (ansley jimenes) [facility] History of Present illness Narrative 10-29-2023 SHIMA Arroyo - 10/29/2023 1:00 PM EST Note Date [...] patient and provider currently located in the [facility]. Maria Guadalupe Portillo is a 23 [...] 12/05/2022 Performed by Lanette Ramey MD at [facility] HX Family History Problem [...] to consider therapy. Educational material provided through [employer]. RTO for annual (due May 2024) or sooner as needed. Patient to present to ED with any suicidal / homicidal thoughts. SHIMA Arroyo APRN-CNP 10/29/23 1316 documented in this encounter [facility] History of Present illness Narrative 09-28-2023 Nancy Beto Degroot, SIDE SEAM ENVELOPE MACHINE OPERATOR-TERMITE EXTERMINATOR HELPER - 09/28/2023 11:30 AM EST Note Date [...] 12/05/2022 Performed by Lanette Ramey MD at [facility] Family History Problem [...] recurrent major depressive disorder, without psychotic features ([facility]-HCC) - FLUoxetine (PROzac) 20 mg capsule; Take [...] some tips to help patient increase social soboba / support. All questions answered. RTO 4 weeks for medication follow up and possibly dose increase. Return sooner if needed. ANTONELLA Winter APRN-CNP Lisa M Franco, APRN-CNP 09/28/23 1403 documented in this encounter [facility] Evaluation note Note Date & Type Note Facility Evaluation note Diagnosis Severe episode of recurrent major depressive disorder, without psychotic features ([facility])- Primary documented in this encounter [facility] Evaluation note Note Date & Type Note Facility Evaluation note Diagnosis depression- Primary Mental disorders of mother, complicating , childbirth, or the puerperium, unspecified as to episode of care documented in this encounter [facility] Instructions Attachments Note Date & Type Note Facility Instructions The following attachments cannot be sent through Care Everywhere.Depression (Slovak)Adjustment Disorder (Slovak)documented in this [facility] Instructions Attachments Note Date & Type Note Facility Instructions The following attachments cannot be sent through Care Everywhere.Depression (Slovak)documented in this encounter [facility] Summary Purpose Family History No [...] and content) DATE CREATED AUTHOR 06/14/2020 [facility] DATE CREATED AUTHOR AUTHOR'S ORGANIZ ATION 02/25/2023 [facility] DATE CREATED AUTHOR AUTHOR'S ORGANIZ ATION 09/30/2023 [facility] DATE CREATED AUTHOR AUTHOR'S ORGANIZ ATION 10/01/2023 [facility] Reason for Visit (unrecogniz ed section and content) Reason Comments Depression Care Teams (unrecognized sec tion and content) Skip Operator Relationship Specialty Start Date End Date No Pcp, [place] [address] PCP - General Family Medicine 07/15/22 FOR [...] BE BASED ON THE PRIMARY CLINICAL RECORDS. [facility]. provides no warranty or guarantee of the accuracy or completeness of information in this document.
[2024-11-19 06:42] VITALS: BP 108/77; PULSE 95; TEMP 36.9; O2SAT 98; BMI 22.3
[2024-11-19 06:51] LABS: Basophils Percent Auto 0.8 % (0.2-2.0); Eosinophils Absolute Auto 0.1 10^3/uL (0.0-0.7); Eosinophils Percent Auto 1.6 % (0.9-7.0); Hematocrit 39.1 % (36.0-48.0); Hemoglobin 13.3 g/dL (12.0-16.0); Immature Granulocytes Abs Auto 0.01 10^3/uL (0.00-0.03); Immature Granulocytes Pct Auto 0.2 % (0.0-0.5); Lymphocytes Absolute Auto 2.4 10^3/uL (1.2-3.8); Lymphocytes Percent Auto 47.1 % (20.5-60.0); Mean Corpuscular Hemoglobin 29.2 pg (26.7-34.0); Mean Corpuscular Volume 85.7 fL (81.0-99.0); Mean Platelet Volume 9.1 fL (9.5-13.5); Monocytes Absolute Auto 0.9 10^3/uL (0.3-0.8); Monocytes Percent Auto 17.4 % (1.7-12.0); Neutrophils Absolute Auto 1.7 10^3/uL (1.4-6.5); Neutrophils Percent Auto 32.9 % (43.0-75.0); Platelet Count 251 10^3/uL (150-450); Red Blood Count 4.56 10^6/uL (4.20-5.40); Red Cell Distribution Width 14.2 % (11.0-15.0); White Blood Count 5.2 10^3/uL (4.0-11.0)
[2024-11-19 06:57] LABS: Bilirubin Urine NEGATIVE (NEGATIVE); Blood Urine NEGATIVE (NEGATIVE); Clarity Urine CLEAR (CLEAR); Color Urine LT. YELLOW (YELLOW); Glucose Urine UA NEGATIVE (NEGATIVE); Ketones Urine NEGATIVE (NEGATIVE); Leukocyte Esterase Urine NEGATIVE (NEGATIVE); Nitrite Urine NEGATIVE (NEGATIVE); Protein Urine NEGATIVE (NEG/TRACE); Specific Gravity Urine 1.015 (1.005-1.025); Urobilinogen Urine 0.2 EU/dL (0.2-1.0); pH Urine 6.5 (5.0-9.0)
[2024-11-19 07:03] LABS: Bacteria Urine TRACE #/HPF (NONE SEEN); RBC Urine 0-2 #/HPF (0-2); WBC Urine 0-2 #/HPF (NONE SEEN)
[2024-11-19 07:04] LABS: Cast Seen? NONE SEEN #/LPF (NONE SEEN); Crystals Seen? None Seen #/HPF (None Seen); Mucus Urine MODERATE (NONE SEEN); Squamous Epithelial Cell Urine MANY #/LPF (NONE/RARE); Urine Culture Indicated NO
[2024-11-19 07:32] LABS: Anion Gap 13.8; BUN Creatinine Ratio 14.3; Calcium 8.8 mg/dL (8.5-10.1); Carbon Dioxide 26.4 mmol/L (21.0-32.0); Chloride 101 mmol/L (98-107); Estimated GFR (African America >60 (>=60 mL/min/1.73m^2); Estimated GFR (Non-African Ame >60 (>=60 mL/min/1.73m^2); Glucose 100 mg/dL (74-106); Potassium 3.2 mmol/L (3.5-5.1); Sodium 138 mmol/L (136-145)
[2024-11-19 07:35] LABS: HCG Quantitative 11518 mIU/mL
--- NOTE | 2024-11-19 11:43 | ED.ABDPAIN1 ---
HPI - Abdominal Pain General Chief Complaint: Abdominal Pain Stated Complaint: cramping Time Seen by Provider: 11/19/24 06:41 Source: patient Mode of arrival: walk-in Limitations: no limitations History of Present Illness HPI narrative: Please refer to Dr. Napier's note for the full history this is evaluation just after signout, the patient to presented to us with left lower quadrant pain and this is her second , there was a history of spotting as well and the patient did not follow-up with her OB doctor yet she is 6 weeks Related Data Previous Rx's ?Medication ?Instructions ?Recorded amoxicillin 875 mg-potassium 1 tab PO Q12H #10 tabs 11/19/24 clavulanate 125 mg tablet Allergies Allergy/AdvReac Type Severity Reaction Status Date / Time adhesive tape AdvReac Rash Verified 11/19/24 07:41 Latex, Natural Rubber AdvReac Rash Verified 11/19/24 07:41 Review of Systems ROS Status of ROS 10 or more systems reviewed and unremarkable except as noted in history and below PFSH PFSH Social History Little interest or pleasure in doing things: not at all Feeling down, depressed, or hopeless: not at all Exam Narrative Exam Narrative: Nurses notes and vital signs reviewed and patient is not hypoxic. General: Well-appearing and in no apparent distress. Skin: Warm, dry, no pallor noted. No rash. Head: Normocephalic, atraumatic. Neck: Supple, non-tender. Cardiovascular: Regular Rate and Rhythm without murmur, gallop or rub. Respiratory: No accessory muscle use or respiratory distress. Lungs are clear to auscultation, no wheezing, rales or rhonchi Chest Wall: no tenderness GI: Abdomen is soft, left lower quadrant pain Constitutional Vital Signs, click to edit/add: Last Vital Signs Temp 98.5 F 11/19/24 06:42 Pulse 95 H 11/19/24 06:42 Resp 18 11/19/24 06:42 BP 108/77 11/19/24 06:42 Pulse Ox 98 11/19/24 06:42 O2 Del Method Room Air 11/19/24 06:42 Course Vital Signs Vital signs: Vital Signs Temperature 98.5 F 11/19/24 06:42 Pulse Rate 95 H 11/19/24 06:42 Respiratory Rate 18 11/19/24 06:42 Blood Pressure 108/77 11/19/24 06:42 Pulse Oximetry 98 11/19/24 06:42 Oxygen Delivery Method Room Air 11/19/24 06:42 Temperature 98.5 F 11/19/24 06:42 Pulse Rate 95 H 11/19/24 06:42 Respiratory Rate 18 11/19/24 06:42 Blood Pressure 108/77 11/19/24 06:42 Pulse Oximetry 98 11/19/24 06:42 Oxygen Delivery Method Room Air 11/19/24 06:42 MDM - Abdominal Pain MDM Narrative Medical decision making narrative: The patient care was transferred to nc at 7 AM after the end of the shift The patient presented to us with left lower quadrant abdominal pain she is 6 weeks blood workup was pending hCG was 11,000 and the patient had ultrasound ordered The patient ultrasound took a long time and she signed AMA before leaving, as she did not want to wait anymore I did explain to her the fact that right now we are ruling out ectopic with this ultrasound and that this would put her at risk of bleeding while she is at home in case ectopic but the patient is still want to leave because her kid does not want to be in the ER anymore Patient was called for the results of the ultrasound after the ultrasound showed that the patient have intrauterine without pole, I did call the patient and explained to her the significance of this finding and the fact that this could be an early miscarriage and I did explain to her that she need to follow-up with her OB doctor within few days. The patient understands and she will follow-up with her doctor Lab Data Labs: Lab Results 11/19/24 11/19/24 11/19/24 Range/Units 06:35 06:40 07:50 WBC 5.2 (4.0-11.0) 10^3/uL RBC 4.56 (4.20-5.40) 10^6/uL Hgb 13.3 (12.0-16.0) g/dL Hct 39.1 (36.0-48.0) % MCV 85.7 (81.0-99.0) fL MCH 29.2 (26.7-34.0) pg MCHC 34.0 (29.9-35.2) g/dL RDW 14.2 (11.0-15.0) % Plt Count 251 (150-450) 10^3/uL MPV 9.1 L (9.5-13.5) fL Neut % (Auto) 32.9 L (43.0-75.0) % Lymph % (Auto) 47.1 (20.5-60.0) % [place] % (Auto) 17.4 H (1.7-12.0) % Eos % (Auto) 1.6 (0.9-7.0) % Baso % (Auto) 0.8 (0.2-2.0) % Neut # (Auto) 1.7 (1.4-6.5) 10^3/uL Lymph # (Auto) 2.4 (1.2-3.8) 10^3/uL [place] # (Auto) 0.9 H (0.3-0.8) 10^3/uL Eos # (Auto) 0.1 (0.0-0.7) 10^3/uL Baso # (Auto) 0.0 (0.0-0.1) 10^3/uL Abs Immat Gran (auto) 0.01 (0.00-0.03) 10^3/uL Imm/Tot Granulo (auto) 0.2 (0.0-0.5) % Sodium 138 (136-145) mmol/L Potassium 3.2 L (3.5-5.1) mmol/L Chloride 101 (98-107) mmol/L Carbon Dioxide 26.4 (21.0-32.0) mmol/L Anion Gap 13.8 BUN 10.0 (7.0-18.0) mg/dL Creatinine 0.70 (0.55-1.02) mg/dL Est GFR ( Amer) >60 (>=60 mL/min/1.73m^2) Est GFR (Non-Af Amer) >60 (>=60 mL/min/1.73m^2) BUN/Creatinine Ratio 14.3 Glucose 100 (74-106) mg/dL Calcium 8.8 (8.5-10.1) mg/dL HCG, Quant 67141 mIU/mL Urine Color Lt. yellow (YELLOW) Urine Clarity Clear (CLEAR) Urine pH 6.5 (5.0-9.0) Ur Specific [place] 1.015 (1.005-1.025) Urine Protein Negative (NEG/TRACE) mg/dL Urine Glucose (UA) Negative (NEGATIVE) mg/dL Urine Ketones Negative (NEGATIVE) mg/dL Urine Occult Blood Negative (NEGATIVE) Urine Nitrite Negative (NEGATIVE) Urine Bilirubin Negative (NEGATIVE) Urine Urobilinogen 0.2 (0.2-1.0) EU/dL Ur Leukocyte Esterase Negative (NEGATIVE) Urine RBC 0-2 (0-2) #/HPF Urine WBC 0-2 A (NONE SEEN) #/HPF Ur Squamous Epith Cells Many A (NONE/RARE) #/LPF Urine Crystals None seen (None Seen) #/HPF Urine Bacteria Trace A (NONE SEEN) #/HPF Urine Casts None seen (NONE SEEN) #/LPF Urine Mucus Moderate A (NONE SEEN) Ur Culture Indicated? No Blood Type A Positive Antibody Screen Negative Discharge Plan Discharge Stand Alone Forms: Portal Instructions Chief Complaint: Abdominal Pain Clinical Impression: Abdominal pain affecting , Antepartum asymptomatic bacteriuria in first trimester, abnormality in , antepartum Patient Disposition: Left Against Medical Advice Time of Disposition Decision: 10:56 Condition: Good Prescriptions / Home Meds: New amoxicillin-pot clavulanate 875-125 mg tablet 1 tab PO Q12H Qty: 10 0RF Print Language: Urdu Instructions: Abdominal Pain in (ED) Referrals: Physician,Non-Staff, MD [Primary Care Provider] - 1 week Discharge Date/Time: 11/19/24 11:03
== END 2024-11-19 11:03 | disposition left against medical advice (07) ==
PROVIDERS: Emergency Provider Internal Medicine
DX: O26.891 Other specified pregnancy related conditions, first trimester (principal); Z53.29 Procedure and treatment not carried out because of patient's decision for other reasons; O34.81 Maternal care for other abnormalities of pelvic organs, first trimester; N83.202 Unspecified ovarian cyst, left side; Z3A.01 Less than 8 weeks gestation of pregnancy; R10.32 Left lower quadrant pain; R82.71 Bacteriuria; O35.9XX0 Maternal care for (suspected) fetal abnormality and damage, unspecified, not applicable or unspecified
CPT/HCPCS: 36415; 76817; 80048; 81001; 84702; 85025; 86850; 86900; 86901; 99284